=== PATIENT | male | born 1965 | race Caucasian/White ===

== ENCOUNTER 2021-10-08 11:13 | Emergency (ER) | payer OTHER, SELFPAY ==
[2021-10-08 11:27] VITALS: BP 113/71; PULSE 74; RESP 18; TEMP 36.5; O2SAT 100
--- NOTE | 2021-10-08 12:05 | ED.MALEGU ---
HPI - Male Genitourinary General Chief complaint: Urogenital-Male Stated complaint: Possible UTI Time Seen by Provider: 10/08/21 11:45 Source: patient, RN notes reviewed and old records reviewed Mode of arrival: ambulatory Limitations: no limitations History of Present Illness HPI Narrative: 56-year-old male who presents to [facility] with complaints of urinary tract infection symptoms of burning with urination. urgency. and frequency with pain at end of voiding noted. Patient reports that he had TURP of prostate about 2 years ago and he has had several urinary tract infections since his surgery. Patient denies any testicular pain or any penile lesions, voices no concern for STD exposure. Patient denies any fevers, chills or sweats, denies any nausea or vomiting or any flank pain. MD Complaint: dysuria Related Data Home Medications Medication Instructions Recorded Confirmed No Home Medications 10/08/21 10/08/21 Allergies Allergy/AdvReac Type Severity Reaction Status Date / Time ciprofloxacin AdvReac Intermediate Muscle Pain Verified 10/08/21 12:21 Review of Systems Review of Systems: CONSTITUTIONAL: Denies fever, chills, or sweats. EYES: Denies visual changes, redness, or discharge. ENT: Denies rhinorrhea, congestion, sore throat, or otalgia. CARDIOVASCULAR: Denies chest pain, palpitations, or edema. RESPIRATORY: Denies cough or dyspnea. GASTROINTESTINAL: Denies abdominal pain, nausea, vomiting, or diarrhea. GENITOURINARY: Positive dysuria or hematuria. SKIN: Denies rash or itching. MUSCULOSKELETAL: Denies back pain, joint pain, or myalgia. NEUROLOGIC: Denies headache, numbness, or weakness. PSYCHIATRIC: Denies anxiety or depression. All systems reviewed & are unremarkable except as noted in HPI and below [facility] Past Medical History Medical History (Updated 10/09/21 @ 00:00 by [place]) UTI (urinary tract infection) Surgical History Surgical History (Updated 10/08/21 @ 19:59 by Shari Garnett NP) H/O transurethral resection of prostate S/P right knee arthroscopy MCL repair Family History Family History (Updated 10/08/21 @ 20:00 by Shari Garnett NP) Other Family history non-contributory Social History Social History (Updated 10/08/21 @ 12:34 by Shari Garnett NP) Smoking status: Never smoker Alcohol intake: current Alcohol use details: social Substance use: never Living arrangements: with family Gender identity (if verbalized by the patient): Male Comments At time of signature, agree with nursing past medical, surgical, social and family history. There is no relevant family history pertinent to the presenting complaint Exam Narrative: GENERAL: Well-appearing, well-nourished, and in no acute distress. HEAD: Normocephalic, atraumatic. EYES: PERRLA and EOMI. ENT: Nares clear, no rhinorrhea or epistaxis. Mucous membranes moist.TM's normal with good light reflex, throat pink with no lesions or exudates, no tonsil enlargement. NECK: Supple.no lymphadenopathy CHEST: Clear to auscultation. No respiratory distress. SAO2 100% on room air. HEART: Regular rate and rhythm. No murmur heard. Normal peripheral pulses. ABDOMEN: Soft, nontender, nondistended, normal active bowel sounds.No CVA tenderness on exam EXTREMITIES: Normal range of motion. No edema. SKIN: Warm, dry, no rash. NEURO: No focal deficits. Alert and oriented x3. Course Vital Signs Vital signs: Vital Signs Temperature 36.5 C 10/08/21 11:27 Pulse Rate 74 10/08/21 11:27 Respiratory Rate 18 10/08/21 11:27 Blood Pressure 113/71 10/08/21 11:27 Pulse Oximetry 100 10/08/21 11:27 Temperature 36.5 C 10/08/21 11:27 Pulse Rate 74 10/08/21 11:27 Respiratory Rate 18 10/08/21 11:27 Blood Pressure 113/71 10/08/21 11:27 Pulse Oximetry 100 10/08/21 11:27 MDM - Male Genitourinary Differential Diagnosis Differential diagnosis: Likely urinary tract infection, urethritis, p
== END 2021-10-08 12:23 | disposition home or self-care (01) ==
PROVIDERS: Emergency Provider Registered Nurse
DX: N39.0 Urinary tract infection, site not specified (principal)
CPT/HCPCS: 81003; 87077; 87086; 87088; 87186; 99203; G0463

== ENCOUNTER 2021-11-21 15:35 | Emergency (ER) | payer OTHER, SELFPAY ==
[2021-11-21 15:45] VITALS: BP 118/68; PULSE 82; RESP 18; TEMP 36.4; O2SAT 100
--- NOTE | 2021-11-21 15:54 | ED.MALEGU ---
HPI - Male Genitourinary General Chief complaint: Urogenital-Male Stated complaint: uti complaints Time Seen by Provider: 11/21/21 15:54 Source: patient, RN notes reviewed and old records reviewed Mode of arrival: ambulatory Limitations: no limitations History of Present Illness HPI Narrative: 56-year-old male who presents to [facility] with complaints of urinary urgency, mild burning with urination, feelings of fullness of bladder which started today. Patient has started with a new urologist with his first appointment 2 weeks ago and states that he is waiting to have a CT scan to rule out any possible fistula type of formation from colon to bladder. Patient reports that he has had the prior TURP but no other bladder surgery. He states that he does drink a lot of coffee and has not been drinking as much water as he should. Patient denies any back pain, fevers, chills or any nausea or vomiting. MD Complaint: dysuria and other (Urgency and burning with urination with) Related Data Home Medications Medication Instructions Recorded Confirmed clobetasol [Olux] 1 applic TOPICAL DIRECTED 11/21/21 11/21/21 Allergies Allergy/AdvReac Type Severity Reaction Status Date / Time ciprofloxacin Allergy Intermediate Muscle Pain Verified 11/21/21 15:54 Review of Systems Review of Systems: CONSTITUTIONAL: Denies fever, chills, or sweats. EYES: Denies visual changes, redness, or discharge. ENT: Denies rhinorrhea, congestion, sore throat, or otalgia. CARDIOVASCULAR: Denies chest pain, palpitations, or edema. RESPIRATORY: Denies cough or dyspnea. GASTROINTESTINAL: Denies abdominal pain, nausea, vomiting, or diarrhea. GENITOURINARY: Positive dysuria no hematuria visualized SKIN: Denies rash or itching. MUSCULOSKELETAL: Denies back pain, joint pain, or myalgia, no suprapubic tenderness or flank pain NEUROLOGIC: Denies headache, numbness, or weakness. PSYCHIATRIC: Denies anxiety or depression. All systems reviewed & are unremarkable except as noted in HPI and below [facility] Past Medical History Medical History UTI (urinary tract infection) Surgical History Surgical History H/O transurethral resection of prostate S/P right knee arthroscopy MCL repair Family History Family History Other Family history non-contributory Social History Social History Smoking status: Never smoker Alcohol intake: current Alcohol use details: social Substance use: never Gender identity (if verbalized by the patient): Male Comments At time of signature, agree with nursing past medical, surgical, social and family history. There is no relevant family history pertinent to the presenting complaint Exam Narrative: GENERAL: Well-appearing, well-nourished, and in no acute distress. HEAD: Normocephalic, atraumatic. EYES: PERRLA and EOMI. ENT: Nares clear, no rhinorrhea or epistaxis. Mucous membranes moist.TM's normal with good light reflex,throat pink with no lesions or exudates no tonsil swelling NECK: Supple.no lymphadenopathy CHEST: Clear to auscultation. No respiratory distress.SAO2 100% HEART: Regular rate and rhythm. No murmur heard. Normal peripheral pulses. ABDOMEN: Soft, nontender, nondistended, normal active bowel sounds.no CVA tenderness on examination. EXTREMITIES: Normal range of motion. No edema. SKIN: Warm, dry, no rash. NEURO: No focal deficits. Alert and oriented x3. Course Course Level of Care: Express Care Visit Vital Signs Vital signs: Vital Signs Temperature 36.4 C 11/21/21 15:45 Pulse Rate 82 11/21/21 15:45 Respiratory Rate 18 11/21/21 15:45 Blood Pressure 118/68 11/21/21 15:45 Pulse Oximetry 100 11/21/21 15:45 Temperature 36.4 C 11/21/21 15:45 Pulse Rate 82 11/21/21 15:45
== END 2021-11-21 16:18 | disposition home or self-care (01) ==
PROVIDERS: Emergency Provider Registered Nurse
DX: R30.0 Dysuria (principal); R39.15 Urgency of urination; Z87.440 Personal history of urinary (tract) infections
CPT/HCPCS: 81003; 87086; 99213; G0463